=== PATIENT | male | born 1970 | race Caucasian/White ===

== ENCOUNTER 2016-10-11 14:37 | Emergency (ER) | payer OTHER ==
[~2016-10-11] VITALS: Ht 165.1 cm; Wt 71.9 kg
[~2016-10-11 14:37] MED LIST: ASPIR 8181 M1 PO; BACTRIM,SEPT1 TABLET PO; CLINDAMYCIN HC300 MG PO; IBUPROFEN800 MG PO; KEFLEX500 MG PO; KEFLEX750 MG PO; METHADONE10 MG PO; MOTRIN800 MG PO; MS CONTIN,ORAMO15 M1 PO; MULTIVITAMIN1 EAC2 PO; NAPROSYN500 MG PO; OXYCODONE HCL15 MG PO; OXYCODONE HCL30 MG PO; OXYCONTIN15 MG PO; PENNSAID112 GM TP; PERCOCET 10-321 EACH PO; SKELAXIN800 MG PO; SLEEP AID25 M2 PO; TYLENOL REGULA325 MG PO; UNISOM25 MG PO; VALIUM5 MG PO; VIBRAMYCIN100 MG PO
[2016-10-11] MEDS ORDERED: VALIUM5 MG PO (16:24)
[2016-10-11 16:36] VITALS: BP 121/81
== END 2016-10-11 16:37 | disposition home or self-care (01) ==
LOC: EME 14:37
PROC: 2W3RX1Z Immobilization of Left Lower Leg using Splint (ICD-10-PCS; principal; 2016-10-11)
DX: S92.352A Displaced fracture of fifth metatarsal bone, left foot, initial encounter for closed fracture (principal); X50.0XXA Overexertion from strenuous movement or load, initial encounter
CPT/HCPCS: 73630; 99281; 99284